=== PATIENT | male | born 1945 | race Caucasian/White ===

== ENCOUNTER 2017-02-23 10:03 | Emergency (ER) | payer MEDICARE, OTHER ==
[2017-02-23] MEDS ORDERED: Ondansetron INJ* 2 MG/ML VIAL IV ONE (10:22)
--- NOTE | 2017-02-23 10:39 | ED ---
Head Injury - HPI Summary HPI Summary: Patient presents s/p fall and striking the posterior head and sustaining a large hematoma. Endorses confusion, memory loss, nausea, visual disturbances including blurry vision and double vision, unsure if LOC, was at side, but denies seeing the fall. No blood loss. Patient has a hx of a-fib and is on aspirin 81mg daily d/t having surgery for a colon polyp this wednesday. Normally, he takes 325mg. Gabriel other pain at this time. During physical exam, patient is confused, but answering questions appropriately. A & O x 3. Trauma happened approx 1 hour ago. - History Of Current Complaint Chief Complaint: EDHeadInjury Stated Complaint: FALL/HEAD PAIN Time Seen by Provider: 02/23/17 10:16 Hx Obtained From: Patient Mechanism Of Injury: Blunt Trauma Onset/Duration: Started Hours Ago Onset of Pain: Immediate Severity Currently: Severe Severity Initially: Severe Pain Intensity: 10 Pain Scale Used: 0-10 Numeric Location of Head Injury: Occipital Character: Throbbing, Pressure Alleviating Factor(s): Rest, Ice Associated Signs And Symptoms: LOC Duration Unknown, Confusion, Memory Loss, Nausea, Swelling, Visual Changes - Risk Factors SDH Risk Factor: Male - Allergies/Home Medications Allergies/Adverse Reactions: Allergies Allergy/AdvReac Type Severity Reaction Status Date / Time No Known Allergies Allergy Verified 05/22/15 10:06 Home Medications: Home Medications Aspirin EC Low Dose* [Ecotrin EC Low Dose 81 MG*] 81 mg PO QPM 02/23/17 [ History Confirmed 02/23/17] Cholecalciferol TAB* [Vitamin D TAB*] 2,000 units PO DAILY 02/23/17 [History Confirmed 02/23/17] Digoxin TAB* [Lanoxin TAB*] 0.125 mg PO QPM 02/23/17 [History Confirmed 02/23/17 ] Levothyroxine TAB* [Synthroid TAB*] 112 mcg PO DAILY 02/23/17 [History Confirmed 02/23/17] Multivitamins/Minerals TAB* [Theragran/minerals TAB*] 1 tab PO DAILY 02/23/17 [ History Confirmed 02/23/17] Pantoprazole TAB (NF) [Protonix TAB (NF)] 20 mg PO DAILY 02/23/17 [History Confirmed 02/23/17] Pravastatin (NF) [Pravachol (NF)] 10 mg PO BEDTIME 02/23/17 [History Confirmed 02/23/17] PMH/Surg Hx/FS Hx/Imm Hx Previously Healthy: Yes Endocrine/Hematology History: Reports: Hx Thyroid Disease Cardiovascular History: Reports: Hx Hypertension - Surgical History Surgery Procedure, Year, and Place: throat stricture - Immunization History Hx Pertussis Vaccination: No Immunizations Up to Date: Unable to Obtain/Confirm Infectious Disease History: No Infectious Disease History: Reports: History Other Infectious Disease - lyme Denies: Traveled Outside the [place] in Last 30 Days - Social History Occupation: Unemployed Lives: With Family Alcohol Use: Rare Hx Substance Use: No Substance Use Type: Reports: None Hx Tobacco Use: No Smoking Status (MU): Former Smoker Review of Systems Constitutional: Negative Positive: Photophobia Respiratory: Negative Positive: Nausea Positive: no symptoms reported, see HPI Musculoskeletal: Negative Positive: Other - large occipital hematoma Positive: Headache, Weakness Psychological: Normal All Other Systems Reviewed And Are Negative: Yes Physical Exam - Summary Physical Exam Summary: According to [place] CT Head Rules, CT WAS obtained d/t: GCS score >15 at 2h post injury. No suspected open or depressed skull fx, no sign of basal skull fx, no hemotympanum, raccoon eyes, Battles sign, CSF moncho-/ rhinorrhea, no emesis after injury, no amnesia, Complete neuro exam completed and WNL. Normal head/face inspection with large cephalohematoma. Reflexes intact. EOMI, PATRICIA, visual acuity intact. No obvious confusion or memory loss per patient and family. MMSE OK. GCS 15. Patient oriented to person, place and date. No obvious deformity or signs of trauma. Finger to nose, heel to toe OK. Speech normal, facial symmetry, normal gait, CN II-III intact. Patient denies LOC. ROM, strength, reflexes in upper and lower extremity intact, sensation intact. Patient discharged with return precautions and post- concussive symptoms explained to patient. Patient agrees to follow up and return if needed. Triage Information Reviewed: Yes Vital Signs On Initial Exam: Initial Vitals Temp Pulse Resp BP Pulse Ox 97.8 F 52 16 128/70 98 02/23/17 10:08 02/23/17 10:08 02/23/17 10:08 02/23/17 10:08 02/23/17 10:08 Vital Signs Reviewed: Yes Appearance: Positive: Well-Appearing, Well-Nourished Skin: Positive: Warm, Skin Color Reflects Adequate Perfusion, Other - large occipital hematoma Head/Face: Positive: Normal Head/Face Inspection Eyes: Positive: EOMI, PATRICIA, Conjunctiva Clear Neck: Positive: Supple, No Lymphadenopathy Respiratory/Lung Sounds: Positive: Clear to Auscultation, Breath Sounds Present Cardiovascular: Positive: Normal, IRR Musculoskeletal: Positive: Strength/ROM Intact Neurological: Positive: Alert, Oriented to Person Place, Time, CN Intact II-III , Reflexes Intact, Speech Normal Psychiatric: Positive: Normal AVPU Assessment: Alert - [place] Coma Scale Best Eye Response: 4 - Spontaneous Best Motor Response: 6 - Obeys Commands Best Verbal Response: 4 - Confused Coma Scale Total: 15 Diagnostics - Vital Signs Vital Signs Temp Pulse Resp BP Pulse Ox 02/23/17 10:16 98.3 F 72 12 128/83 98 02/23/17 10:08 97.8 F 52 16 128/70 98 - Laboratory Result Diagrams: 02/23/17 10:22 02/23/17 10:22 Lab Statement: Any lab studies that have been ordered have been reviewed, and results considered in the medical decision making process. Head Injury Course/Dx Course Of Treatment: Patient sent to CT brain: Normal with no acute pathologies. Labs: OK. Zofran given with effect. Complete neuro exam completed and WNL. Normal head/face inspection except for large cephalohematoma in posterior parietal area of right side. Reflexes intact. EOMI , PATRICIA. No obvious confusion or memory loss per patient and family. MMSE OK. GCS 14. Patient oriented to person, place and date. Patient unsure of LOC. Visual acuity intact. ROM, strength, reflexes un upper and lower extremity intact, sensation intact. Patient discharged with return precautions and post- concussive symptoms explained to patient. Patient agrees to follow up and return if needed. - Diagnoses Differential Diagnosis/HQI/PQRI: Cerebral Contusion, Concussion With LOC, Concussion Without LOC, Intracranial Bleed Provider Diagnoses: Traumatic hematoma of head, Concussion Discharge - Discharge Plan Condition: Stable Disposition: HOME Patient Education Materials: Concussion (ED) Referrals: Nadir Bravo MD [Primary Care Provider] - Additional Instructions: Brain rest Dark rooms, no bright lights. If symptoms become worse, return to the ED Images - Images Head: 1 - large hematoma
--- NOTE | 2017-02-23 10:48 | RAD ---
HISTORY: Head trauma COMPARISONS: None TECHNIQUE: Multiple contiguous axial CT scans were obtained of the head without intravenous contrast. FINDINGS: HEMORRHAGE/INFARCT: There is no hemorrhage or acute infarct. MASSES/SHIFT: There is no mass or shift. EXTRA-AXIAL SPACES: There are no extra-axial fluid collections. SULCI AND VENTRICLES: The sulci and ventricles are normal in size and position for the patient's stated age. CEREBRUM: There are no focal parenchymal abnormalities. BRAINSTEM: There are no focal parenchymal abnormalities. CEREBELLUM: There are no focal parenchymal abnormalities. VESSELS: The vessels are grossly normal. PARANASAL SINUSES: The paranasal sinuses are clear. ORBITS: The orbits are unremarkable. BONES AND SOFT TISSUE: There is soft tissue swelling of the right parietal scalp OTHER: None IMPRESSION: NO ACUTE INTRACRANIAL PATHOLOGY.
[2017-02-23 11:29] LABS: Hematocrit 40 % (42-52); Hemoglobin 12.9 g/dl (14.0-18.0); Mean Corpuscular HGB Conc 33 g/dl (31-36); Mean Corpuscular Hemoglobin 27 pg (27-31); Mean Corpuscular Volume 82 fL (80-94); Mean Platelet Volume 8 um3 (7.4-10.4); Red Blood Count 4.85 10^6/ul (4.0-5.4); Red Cell Distribution Width 16 % (10.5-15); White Blood Count 8.8 10^3/ul (3.5-10.8)
[2017-02-23 11:58] LABS: Albumin 3.9 g/dL (3.2-5.2); Calcium 9.1 mg/dL (8.6-10.3); EGFR African American 81.7 (>60); EGFR Non-African American 63.5 (>60); Globulin 2.6 g/dL (2-4); Potassium 4.7 mmol/L (3.5-5.0); Total Bilirubin 0.6 mg/dL (0.2-1.0); Total Protein 6.5 g/dL (6.4-8.9)
[2017-02-23 12:11] VITALS: BP 121/80
== END 2017-02-23 12:10 | disposition home or self-care (01) ==
LOC: ED 10:03
DX: S06.0X9A Concussion with loss of consciousness of unspecified duration, initial encounter (principal); S00.03XA Contusion of scalp, initial encounter; R41.0 Disorientation, unspecified; Z87.891 Personal history of nicotine dependence; R11.0 Nausea; H53.149 Visual discomfort, unspecified; R51 Headache; R53.1 Weakness; W18.00XA Striking against unspecified object with subsequent fall, initial encounter; Y93.9 Activity, unspecified; Y92.9 Unspecified place or not applicable; R41.3 Other amnesia
CPT/HCPCS: 36415; 70450; 80053; 85025; 85610; 85730; 96374; 99282; J2405